=== PATIENT | female | born 1990 | race Caucasian/White ===

== ENCOUNTER 2018-12-25 19:08 | Emergency (ER) | payer OTHER ==
[~2018-12-25] VITALS: Ht 162.5 cm; Wt 77.1 kg
[2018-12-25] MEDS ORDERED: Tobrex Ophth S2.5 ML OPH (20:08)
== END 2018-12-25 20:25 | disposition home or self-care (01) ==
LOC: ED
DX: H10.9 Unspecified conjunctivitis (principal); Z88.1 Allergy status to other antibiotic agents